=== PATIENT | female | born 1970 | race Caucasian/White ===

== ENCOUNTER 2021-06-22 09:03 | Emergency (ER) | payer SELFPAY ==
[2021-06-22] MEDS ORDERED: Acetaminophen/Codeine 300-30 MG Tab PO ONE (09:23)
[2021-06-22] MEDS ORDERED: Ibuprofen 200 MG Tab PO ONE (09:24)
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
--- NOTE | 2021-06-22 10:34 | CR ---
[id number] RAD/RAD Sacrum and Coccyx EXAM: RAD Sacrum and Coccyx INDICATION: LUMBAR SACRAL PAIN POST FALL. COMPARISON: None. DISCUSSION: Slightly displaced acute appearing S5 sacrum fracture. Minor sacroiliac osteoarthritis. No other osseous abnormality is identified. IMPRESSION: 1. Slightly displaced acute S5 sacral fracture. Tomas Mock MD 06/22/21 1032 Thank you for allowing us to participate in the care of your patient.
== END 2021-06-22 10:20 | disposition home or self-care (01) ==
LOC: VM.ED 09:03
DX: M53.3 Sacrococcygeal disorders, not elsewhere classified (principal); Z91.018 Allergy to other foods; Z72.0 Tobacco use
CPT/HCPCS: 72100; 72220; 99283; A9270-GY